=== PATIENT | male | born 1970 | race American Indian/Alaskan Native ===

== ENCOUNTER 2018-09-02 16:30 | Emergency (ER) | payer SELFPAY ==
[2018-09-02 16:42] VITALS: BP 154/87
[2018-09-02] MEDS ORDERED: BOOSTRIX IM ONE (18:21)
[2018-09-02] MEDS ORDERED: MORPHINE IM ONE (18:21)
[2018-09-02] MEDS ORDERED: ANCEF IM ONE (18:21)
[2018-09-02] MEDS ORDERED: MARCAINE 0.25% INFILTRATI ONE (18:21)
--- NOTE | 2018-09-02 18:26 | Emergency Department Report ---
[place] [facility] - Documentation Documentation: She is a 48-year-old male who was at work and had a pallet that crashed down on his right foot. Patient has a laceration to the little first with a Soma right foot and has exposed bone present. There is deformity to the distal portion of the right great toe. Patient had x-rays show a dislocation to the right great toe. Patient will receive a tetanus shot was given pain meds and a dose of Ancef and will have the dislocation laceration repaired.
--- NOTE | 2018-09-02 18:40 | XRay Report ---
FINAL REPORT EXAM: XR FOOT 3+V RT HISTORY: right great toe injury/deformity TECHNIQUE: AP, oblique and lateral radiographs of the right foot. PRIORS: None. FINDINGS: There is acute dorsal dislocation of the interphalangeal joint of the right great toe. No fracture. Normal mineralization. There is soft tissue swelling surrounding the right great toe. Subcutaneous emphysema along the dorsum of the right forefoot may be related to a laceration. IMPRESSION: Dislocation of the interphalangeal joint of the right great toe. Subcutaneous emphysema over the dorsum of the right forefoot may be related to a laceration.
--- NOTE | 2018-09-02 18:41 | XRay Report ---
FINAL REPORT EXAM: XR TOE(S) 2+V RT HISTORY: right great toe deformity/injury TECHNIQUE: Three views of the right great toe. PRIORS: None. FINDINGS: No fracture. There is an acute dorsal dislocation of the interphalangeal joint of the right great toe. Normal mineralization. There is soft tissue swelling surrounding the right great toe. There is a small amount of subcutaneous emphysema in the dorsum of the right foot. No degenerative change. IMPRESSION: Acute dislocation of the interphalangeal joint of the right great toe. Subcutaneous emphysema may be related to a laceration.
--- NOTE | 2018-09-02 19:45 | Emergency Department Report ---
ED Lower Extremity HPI - General Chief Complaint: Extremity Injury, Lower Stated Complaint: INJURED/CUT RT FOOT Time Seen by Provider: 09/02/18 18:19 Source: patient Mode of arrival: Wheelchair Limitations: No Limitations - History of Present Illness Initial Comments: This is a 48-year-old male nontoxic, well nourished in appearance, no acute signs of distress presents to the ED with c/o of right great toe laceration with dislocation. Patient stated this occurred this evening. Patient stated that at work a pallet fell on his toe. Patient denies any other trauma. Patient denies any decreased range of motion, decreased sensation, fever, chills , nausea, vomiting, chest pain, short of breath, headache or stiff neck. Patient denies any allergies significant past medical history. Denies being up- to-date with tetanus. -: This evening Injury: Toes: Right Type of Injury: blunt Place: work Severity: moderate Severity scale (0 -10): 8 Improves With: immobilization Worsens With: movement, palpation Context: direct blow Associated Symptoms: swelling, unable to bear weight. denies: snap/pop sensation, numbness, tingling, able to partially bear weight, ambulatory - Related Data Previous Rx's Medication Instructions Recorded Last Taken Type Acetaminophen/Codeine [Tylenol 1 tab PO Q6H PRN #12 tab 09/02/18 Unknown Rx /Codeine # 3 tab] Sulfamethoxazole/Trimethoprim 1 each PO BID #14 tablet 09/02/18 Unknown Rx [Bactrim DS TAB] Allergies Allergy/AdvReac Type Severity Reaction Status Date / Time No Known Allergies Allergy Verified 09/02/18 16:37 ED Review of Systems ROS: Stated complaint: INJURED/CUT RT FOOT Other details as noted in HPI Constitutional: denies: chills, fever Eyes: denies: eye pain, eye discharge, vision change ENT: denies: ear pain, throat pain Respiratory: denies: cough, shortness of breath, wheezing Cardiovascular: denies: chest pain, palpitations Endocrine: no symptoms reported Gastrointestinal: denies: abdominal pain, nausea, diarrhea Genitourinary: denies: urgency, dysuria Musculoskeletal: denies: back pain, joint swelling, arthralgia Skin: denies: rash, lesions Neurological: denies: headache, weakness, paresthesias Psychiatric: denies: anxiety, depression Hematological/Lymphatic: denies: easy bleeding, easy bruising ED Past Medical Hx - Past Medical History Previous Medical History?: No - Surgical History Past Surgical History?: No - Social History Smoking Status: Never Smoker Substance Use Type: None - Medications Home Medications: Home Medications Medication Instructions Recorded Confirmed Last Taken Type Acetaminophen/Codeine [Tylenol 1 tab PO Q6H PRN #12 tab 09/02/18 Unknown Rx /Codeine # 3 tab] Sulfamethoxazole/Trimethoprim 1 each PO BID #14 tablet 09/02/18 Unknown Rx [Bactrim DS TAB] ED Physical Exam - General Limitations: No Limitations General appearance: alert, in no apparent distress - Head Head exam: Present: atraumatic, normocephalic - Eye Eye exam: Present: normal appearance - ENT ENT exam: Present: mucous membranes moist - Neck Neck exam: Present: normal inspection - Respiratory Respiratory exam: Present: normal lung sounds bilaterally. Absent: respiratory distress - Cardiovascular Cardiovascular Exam: Present: regular rate, normal rhythm. Absent: systolic murmur, diastolic murmur, rubs, gallop - GI/Abdominal GI/Abdominal exam: Present: soft, normal bowel sounds - Rectal Rectal exam: Present: deferred - Extremities Exam Extremities exam: Present: normal inspection, full ROM, tenderness, normal capillary refill. Absent: joint swelling - Expanded Lower Extremity Exam Right Hip exam: Present: normal inspection, full ROM. Absent: tenderness, swelling Upper Leg exam: Present: normal inspection, full ROM. Absent: tenderness, swelling Knee exam: Present: normal inspection, full ROM. Absent: tenderness, swelling Lower Leg exam: Present: normal inspection, full ROM. Absent: tenderness, swelling Ankle exam: Present: normal inspection, full ROM. Absent: tenderness, swelling Foot/Toe exam: Present: normal inspection, full ROM, tenderness, laceration, deformity, dislocation. Absent: swelling, abrasion, ecchymosis, crepidus, erythema, amputation, puncture wound, foreign body, calcaneal tenderness, tenderness at base of 5th metatarsal, nail avulsion, subungual hematoma Neuro vascular tendon exam: Present: no vascular compromise. Absent: pulse deficit, abnormal cap refill, motor deficit, sensory deficit, tendon deficit, extremity cold to touch, pallor, abnormal 2-point discrimination, decreased fine /light touch, foot drop, peroneal nerve deficit, significant pain with passive ROM of distal joint Gait: Positive: unable to bear weight 1 - Irregular 2 cm Laceration with exposed bone - Back Exam Back exam: Present: normal inspection, full ROM - Neurological Exam Neurological exam: Present: alert, oriented X3 - Psychiatric Psychiatric exam: Present: normal affect, normal mood - Skin Skin exam: Present: warm, dry, intact, normal color. Absent: rash ED Course Vital Signs 09/02/18 09/02/18 16:37 19:00 Temperature 98.8 F Pulse Rate 80 Respiratory 18 20 Rate Blood Pressure 154/87 O2 Sat by Pulse 100 Oximetry - Reevaluation(s) Reevaluation #1: 09/02/18 19:44 Patient is speaking in full sentences with no signs of distress noted. - Consultations Consultation #1: 09/02/18 20:51 Patient has been consulted with Tyrone Martinez (orthopedic) about patient history, physical exam, and xray results and concerns about compartment syndrome and stated patient could be follow up with hand in the office in 3-5 days and put a posterior short leg splint and have patient elevate foot. - Laceration /Wound Repair Right Toe Wound Location: lower extremity Wound Length (cm): 2 Wound's Depth, Shape: irregular Wound Explored: contaminated Irrigated w/ Saline (ccs): 40 Betadine Prep?: Yes Anesthesia: 0.5% Sensorcaine Volume Anesthetic (ccs): 6 Wound Repaired With: sutures Suture Size/Type: 3:0, nylon Number of Sutures: 5 Layer Closure?: No Sterile Dressing Applied?: Yes Progress: Patient first soaked foot with sterile water and Betadine. Under sterile field, I used Betadine to clean the area. I then used 40 mL of normal saline to flush the area. I then used 0.5% Marcaine plain and injected 6 mL digital block of right great toe. I then used a 3-0 Ethilon to suture the laceration. Number of stitches 5. I then applied a sterile 4 x 4 with tape. Minimal bleeding noted but is under control. Patient tolerated procedure well with no signs of distress. - Orthopedic Fracture Reduction Fracture #1 Consent Obtained: verbal consent Time Out Performed: Yes Side: right Fracture Reduction Location: toe Analgesia: digital block Technique: direct manipulation Post-Reduction Neuro Exam: intact Post-Reduction Vascular Exam: intact Splint Applied: Yes (angie splint) Patient Tolerated Procedure: well, no complications ED Lower Extremity MDM - Medical Decision Making This is a 48-year-old male that presents with laceration and great toe dislocation. Patient is stable and was examined by me and Dr. Reeves. Patient is neurovascularly intact. Post reduction xray obtained with successful. Patient was discussed with Dr. Orourke and pictures sent to him about concerns about compartment syndrome but stated to have the patient discharged and follow- up in the office. I educated patient about compartment syndrome signs and symptoms and to learn to the ED if these symptoms occurs. The laceration suturing has been performed and has been performed and patient tolerated well. A sterile dressing has been applied. Patient was educated on proper wound care. Patient did receive Ancef and tetanus in the ER. Patient is discharged with Bactrim and Tylenol with codeine and was instructed not to operate any machinery while taking Tylenol with codeine due to drowsiness. Patient did posterior short leg splint and crutches and was educated by RN how to use crutches. Post splint assessment: neurovasular intact; normal cap refill <2 second; normal sensation; denies decreaed sensation; normal ROM of digits. Patient was instructed to refer to Follow-up with a orthopedic doctor in 2-3 days or if symptoms worsen and continue return to emergency room as soon as possible. At time of discharge, the patient does not seem toxic or ill in appearance. No acute signs of distress noted. Patient agrees to discharge treatment plan of care. No further questions noted by the patient. Critical care attestation.: If time is entered above; I have spent that time in minutes in the direct care of this critically ill patient, excluding procedure time. ED Disposition Clinical Impression: Laceration Open fracture of great toe Qualifiers: Encounter type: initial encounter Phalanx: distal Fracture alignment: displaced Laterality: right Qualified Code(s): S92.421B - Displaced fracture of distal phalanx of right great toe, initial encounter for open fracture Disposition: TO HOME OR SELFCARE Is pt being admited?: No Does the pt Need Aspirin: No Condition: Stable Instructions: Acetaminophen/Codeine (By mouth), Suture Care (ED), Laceration ( ED), Toe Fracture (ED) Additional Instructions: Follow-up with a orthopedic doctor in 2-3 days or if symptoms worsen and continue return to emergency room as soon as possible. Return in 10 days for suture removal. Do not operate any machinery while taking Tylenol with codeine as this may cause drowsiness. Prescriptions: Acetaminophen/Codeine [Tylenol /Codeine # 3 tab] 1 tab PO Q6H PRN #12 tab PRN Reason: Pain , Severe (7-10) Sulfamethoxazole/Trimethoprim [Bactrim DS TAB] 1 each PO BID #14 tablet Referrals: PRIMARY CAREMD [Primary Care Provider] - 3-5 Days [facility] [Outside] - 3-5 Days [facility] [Outside] - 3-5 Days TYRONE OROURKE MD [Staff Physician] - 2-3 Days Forms: Work/School Release Form(ED)
--- NOTE | 2018-09-02 19:53 | XRay Report ---
FINAL REPORT EXAM: XR FOOT 3+V RT HISTORY: post reducation TECHNIQUE: Frontal, lateral, oblique views right foot Comparison: X-ray right foot performed earlier today FINDINGS: There has been successful reduction of the previously demonstrated dislocation of the great toe at the level of the interphalangeal joint. The bony structures are now in anatomic alignment. There is a tiny bony density medial to the interphalangeal joints of the great toe which may represent a small avulsed fracture fragment. Again noted is the emphysematous change in the soft tissues on the medial aspect of the forefoot IMPRESSION: 1. Successful reduction of the previously demonstrated dislocation great toe interphalangeal joint. 2. Possible tiny avulsed fracture fragment medial to the IP joint of the great toe. 3. Emphysematous change in the soft tissues of the medial aspect of the forefoot. Soft tissue injury or soft tissue infectious process need to be considered.
== END 2018-09-02 21:52 | disposition home or self-care (01) ==
LOC: ED 16:30
DX: S92.421B Displaced fracture of distal phalanx of right great toe, initial encounter for open fracture (principal); W22.8XXA Striking against or struck by other objects, initial encounter; Y93.89 Activity, other specified; Y92.89 Other specified places as the place of occurrence of the external cause; Y99.8 Other external cause status
CPT/HCPCS: 28495; 73630; 73660; 90471; 90715; 96372; 99283; J0690; J2270